=== PATIENT | female | born 1995 | race Caucasian/White ===

== ENCOUNTER 2023-10-09 18:23 | Day surgery (SDC) | payer OTHER, SELFPAY ==
[2023-10-09] VITALS (14 sets, daily range): BP systolic 109–131; BP diastolic 47–105; PULSE 77–104; RESP 16–24; TEMP 36.1–37; O2SAT 99–100; BMI 24.2
[2023-10-09 19:04] LABS: Basophils Percent Auto 0.4 % (0.0-3.0); Hematocrit 34.9 % (33.0-51.0); Hemoglobin* 11.9 gm/dL (12.0-16.0); Immature Granulocytes Pct Auto 0.1 %; Lymphocytes Percent Auto 19.4 % (20-44); Mean Corpuscular HGB Conc 34 gm/dL (32-36); Mean Corpuscular Hemoglobin 31 pg (26-34); Mean Corpuscular Volume 90 fL (80-100); Monocytes Percent Auto 6.1 % (0.0-11.0); Platelet Count* 298 K/uL (140-440); RDW Coefficient of Variation % 12.5 % (11.5-15.5); Red Blood Count 3.88 m/uL (4.00-5.20); White Blood Count* 13.68 K/uL (4.50-11.00)
[2023-10-09 19:05] LABS: Slide Review Reflex No
[2023-10-09] MEDS: MORPHINE 4 MG/ML INJ IVP (19:06)
[2023-10-09] MEDS: 0.9 % SODIUM CHLORIDE 1000 ml 1,000 ML IV (19:07)
--- NOTE | 2023-10-09 19:31 | P.GYNCN_ITS ---
SCHOOL ATTENDANCE SECRETARY - CN: HPI Data of Consult Time Seen by Provider: 19:00 Date Seen: 10/09/23 Patient: Mirela Patient Consult date: 10/09/23 Primary Care Provider: Sandi Capone MD Consult Narrative Reason for consult: ectopic Narrative: Tayler Perry is a 28 year old female who presents to the ED a ruptured ectopic . She was evaluated by Dr. Capone in clinic today for follow-up of left lower quadrant abdominal pain in the setting of of unknown location. LMP is 08/29/2023. This was a wanted . Tayler reported LLQ pain that started over a week ago. It has progressively worsened. She reports that she is in constant abdominal pain, 5/10. Pain is worse with walking and physical activities. Her pain was so severe that she went to [facility] Emergency Department on 10/07/2023. At that time, lab workup including CBC, CMP, UA/urine culture were unremarkable. Her hemoglobin was 13.5 at the time. Beta-hCG was 1846. Unfortunately, a pelvic ultrasound was not done at that time as patient was told she was too early in to see anything. The recommendation at that time was to follow up in clinic on Monday. Since then her pain has only gotten worse. On 10/08, she started having vaginal bleeding. Her vaginal bleeding is not heavy. She describes it as a slow drip. She no has worsening nausea. At her visit with Dr. Capone today she had repeat hgb, beta hcg, and a pelvic ultrasound today. Her pelvic ultrasound showed no intrauterine gestational sac. Uterus appears unremarkable. Endometrial stripe measures 14 mm, within normal limits. No suspicious uterine masses. The right ovary measures 2.9 x 2.8 x 2.8 cm. The left ovary measures 3.9 x 2.7 x 2.3 cm. Within the left ovary, there is increased focus of hypervascularity, without well-defined mass identified. There is a small to moderate volume of complex free fluid in the pelvis and the left adnexal region. Increase focus of hypervascularity in the left adnexal region without well defined ovarian mass could represent a ruptured ectopic in this patient. Her hgb today was 11.6 at the time of her clinic visit. Beta-hCG still pending at the time of this H&P. Given her drop in hemoglobin, continued abdominal pain, and ultrasonographic findings, I suspect ruptured ectopic . Overall, she is vitally stable (mild tachycardia to 102 bpm) but has an acute abdomen. At this point, I recommend proceeding with diagnostic laparoscopy and anticipated ectopic removal. We discussed that the ectopic removal could require salpingectomy and/or oophorectomy. Tayler is tearful as this was very much a desired but agrees with the plan as she can't tolerate the pain much longer. Surgical hx: Reimplantation of the ureter at the age of 9 cc:: CC: PFSH [facility] Social History Smoking Status: Current every day smoker What tobacco products do you use: cigarettes Smoking packs per day: 0.5 Smoking cigarettes per day: 10.0 Years smoked: 10 Smoking pack-years: 5.00 Do you use any of these nicotine containing products: None Second hand tobacco smoke exposure: No How often do you have a drink containing alcohol: 4 or more times a week AUDIT-C Alcohol total score: 4 Non-prescribed substance use: denies use Meds Home Medications and Allergies Home Medications Medication Instructions Recorded Confirmed Type No Known Home Medications 10/09/23 10/09/23 History Allergies Allergy/AdvReac Type Severity Reaction Status Date / Time amoxicillin Allergy Severe Anaphylaxis Verified 10/09/23 18:41 SCHOOL ATTENDANCE SECRETARY - Exam Physical Exam: Vital signs: Temp Pulse Resp BP Pulse Ox O2 Del Method 98.6 F 102 H 18 125/80 100 Room Air 10/09/23 18:35 10/09/23 18:35 10/09/23 18:35 10/09/23 18:35 10/09/23 18:35 10/09/23 18:35 Narrative: Physical exam: General: Tearful during our discussion but no acute distress Psych: Alert and oriented x4, full affect HEENT: Normocephalic, atraumatic, bilateral conjunctival pallor Neck: No cervical adenopathy, no thyromegaly Lungs: Unlabored breathing Abdomen: tenderness this from the umbilicus down- most pronounced at the left lower quadrant. Positive rebound and guarding. Skin: No lesions or rashes Lower extremities: No edema or erythema Pelvic exam: Deferred to OR SCHOOL ATTENDANCE SECRETARY - Results Labs Labs: Short CBC 10/09/23 Range/Units 18:52 WBC 13.68 H (4.50-11.00) K/uL Hgb 11.9 L (12.0-16.0) gm/dL Hct 34.9 (33.0-51.0) % Plt Count 298 (140-440) K/uL Assessment and Plan Assessment and plan (1) Ruptured ectopic : Status: Acute Plan - Tayler was consented for a diagnostic laparoscopy, ectopic removal with possible salpingectomy and/or oophorectomy, and all other indicated procedures. We also discussed risk of laparoscopic surgery including pain, bleeding, infection, and damages to the surrounding structures of the operative site. We also reviewed postoperative expectations and recovery course. Patient After counseling patient would like to proceed. Consents signed and OR team notified - Last ate at 1pm - Hgb/plt: 11.9/298 - Beta HCG pending from [facility] - Type and screen: A+; Rhogam not indicated.
--- NOTE | 2023-10-09 20:01 | ED_ITS ---
HPI - General Adult General Date Seen: 10/09/23 Chief complaint: OB/Uterine Contractions Stated complaint: abdominal pain Time Seen by Provider: 10/09/23 18:24 Source: patient, RN notes reviewed and other Mode of arrival: ambulatory Limitations: no limitations History of Present Illness HPI narrative: Patient is a 28-year-old , previous was uncomplicated. She had been having some abdominal pain and bleeding, apparently was seen in [place] last week and had a beta hCG of 1800 but ultrasound was not done at that time. She was seen in clinic today due to ongoing abdominal pain and was noted to have hemoglobin of 11.5 which was down 2 g and an ultrasound which showed a probable ruptured ectopic and hemoperitoneum. She was called and advised to come to the ER. She has no specific complaints at this time aside from abdominal pain, which is diffuse. She has not had vomiting. She denies prior need for RhoGAM. Denies other medical history, no known allergies. Here today with her partner. Related Data Home Medications Medication Instructions Recorded Confirmed No Known Home Medications 10/09/23 10/09/23 Allergies Allergy/AdvReac Type Severity Reaction Status Date / Time amoxicillin Allergy Severe Anaphylaxis Verified 10/09/23 18:41 Review of Systems Status of ROS: Reports: 6 or more systems reviewed and unremarkable except as noted in History and below PFSH PFS Social History Smoking Status: Current every day smoker What tobacco products do you use: cigarettes Smoking packs per day: 0.5 Smoking cigarettes per day: 10.0 Years smoked: 10 Smoking pack-years: 5.00 Do you use any of these nicotine containing products: None Second hand tobacco smoke exposure: No How often do you have a drink containing alcohol: 4 or more times a week AUDIT-C Alcohol total score: 4 Non-prescribed substance use: denies use Exam Const: Vital Signs, click to edit/add: Vital Signs - 24 hr 10/09/23 18:35 Temperature 98.6 F Pulse Rate [Pulse Oximeter] 102 H Respiratory Rate 18 Blood Pressure [Ri ght Upper Arm] 125/80 Pulse Oximetry 100 Oxygen Delivery Me thod Room Air Course Course ED Course: On arrival, an IV was placed, labs drawn for CBC as well as a type and screen. Dr. Carranza was alerted that patient had arrived to the ER. She was already aware of her case. I ordered a L normal saline. Hemodynamically, blood pressure was good, she was mildly tachycardic with a pulse of 102. Given morphine 4 mg for pain. CBC showed a stable hemoglobin of 11.9. OB consulted, patient was taken the operating room. Otherwise unremarkable ER course. Vital Signs Vital signs: Initial Vital Signs Temperature 98.6 F 10/09/23 18:35 Temperature Source Temporal Artery Scan 10/09/23 18:35 Pulse Rate 102 H 10/09/23 18:35 Respiratory Rate 18 10/09/23 18:35 Blood Pressure 125/80 10/09/23 18:35 Blood Pressure Mean 95 10/09/23 18:35 Blood Pressure Position Sitting 10/09/23 18:35 Pulse Oximetry 100 10/09/23 18:35 Oxygen Delivery Method Room Air 10/09/23 18:35 Vital Signs Temperature 98.6 F 10/09/23 18:35 Pulse Rate 102 H 10/09/23 18:35 Respiratory Rate 18 10/09/23 18:35 Blood Pressure 125/80 10/09/23 18:35 Pulse Oximetry 100 10/09/23 18:35 Oxygen Delivery Method Room Air 10/09/23 18:35 Temperature 98.6 F 10/09/23 18:35 Pulse Rate 102 H 10/09/23 18:35 Respiratory Rate 18 10/09/23 18:35 Blood Pressure 125/80 10/09/23 18:35 Pulse Oximetry 100 10/09/23 18:35 Oxygen Delivery Method Room Air 10/09/23 18:35 Medications Administered Medications: Generic Name Dose Route Start Last Admin Trade Name Freq PRN Reason Stop Dose Admin Sodium Chloride 1,000 mls @ 1,000 mls/hr 10/09/23 18:45 10/09/23 19:07 0.9 % Sodium Chloride 1000 Ml IV 10/09/23 19:44 1,000 mls/hr .Q1H KAYCEE Administration Morphine Sulfate 4 mg 10/09/23 18:52 10/09/23 19:06 Morphine 4 Mg/Ml Inj IVP 10/09/23 18:53 4 mg ONCE ONE Administration Medical Decision Making Lab Data Labs: Lab Results 10/09/23 Range/Units 18:52 WBC 13.68 H (4.50-11.00) K/uL RBC 3.88 L (4.00-5.20) m/uL Hgb 11.9 L (12.0-16.0) gm/dL Hct 34.9 (33.0-51.0) % MCV 90 (80-100) fL MCH 31 (26-34) pg MCHC 34 (32-36) gm/dL RDW Coeff of Saray 12.5 (11.5-15.5) % Plt Count 298 (140-440) K/uL Neut % (Auto) 73.0 H (42.0-72.0) % Lymph % (Auto) 19.4 L (20-44) % [place] % (Auto) 6.1 (0.0-11.0) % Eos % (Auto) 1.0 (0.0-7.0) % Baso % (Auto) 0.4 (0.0-3.0) % Neut # (Auto) 10.00 H (1.7-7.0) K/uL Lymph # (Auto) 2.70 (0.90-2.90) K/uL [place] # (Auto) 0.80 (0.00-0.90) K/UL Eos # (Auto) 0.10 (0.00-0.50) K/uL Baso # (Auto) 0.10 (0.00-0.30) K/uL Abs Immat Gran (auto) 0.00 (0.00-0.30) K/uL Imm/Tot Granulo (auto) 0.1 % Discharge Plan Discharge Clinical Impression: Ruptured ectopic Prescriptions: No Action No Known Home Medications Follow Up/Referrals: Sandi Capone MD [Primary Care Provider] -
--- NOTE | 2023-10-09 20:09 | PM.GYNPRLA ---
Procedure Pre-op/Post-op diagnoses: Pre-Op/Post-Op Diagnoses Operation Date: 10/09/23 20:00 <No data on this case meets the specified criteria> Procedure: Procedures Operation Date: 10/09/23 20:00 Diagnostic laparoscopy, left salpingectomy with ectopic removal Estimated blood loss (mL): 10 Anesthesia type: General Complications: none Specimen: other (Left fallopian tube with ectopic ) Narrative: Narrative: Preoperative diagnosis: Tayler is a 28-year-old who presented to the ED with a ruptured ectopic and consented for emergency surgery. Postoperative diagnosis: Same Procedure: Diagnostic laparoscopy, left salpingectomy Anesthesia: General endotracheal, local Surgeon: Ela Carranza MD Real Estate Internship: None Estimated blood loss: 10 mL UOP: 250 cc IVF: 1000 cc Specimen: Left fallopian tube with ectopic inside. Findings: 1. Upon pelvic exam under anesthesia, vagina with scant blood in vaginal vault. One nabothian cyst on cervix, but otherwise normal. Uterus was mobile and anteverted, of normal size and texture. There were left adnexal mass palpated on bimanual exam. Abdomen mildly distended. 2. Upon laparoscopy, survey of the upper abdomen revealed a normal appearance to the inferior edge of the liver. Adhesion of the bowel to the right pelvic side wall from previous ureter reimplantation. Appendix unable to be visualized. Filmy adhesion of sigmoid colon to left pelvic side wall. Right fallopian tube and ovary was normal in appearance. Normal left ovary. Left fallopian tube was edematous with active bleeding from obvious ruptured ectopic . The abdomen and cul-de-sac was noted to be filled with approximately 200- 300 cc of blood and clots. Tayler was taken to the operating room where general anesthesia was found to be adequate. She was placed in the dorsal lithotomy position and an exam under anesthesia was performed with findings stated above. She was then prepped and draped in a normal sterile manner. Her bladder was drained with Prasad catheter. A sponge stick was placed vaginally to act as uterine manipulator. Attention was turned to performing the laparoscopic portion of the procedure. All incisions were injected with 0.5% Marcaine with epinephrine prior to incising the skin. An infraumbilical, vertical, 5 mm incision was made. A 5 mm trocar was placed under direct visualization. An intra-abdominal placement verified with laparoscopy. The abdomen was then insufflated with carbon dioxide to a pressure of 15 mm of mercury. Two additional port sites were created. The 1st was in the patient's left lower quadrant, just superior medial to the left ASIS. The 2nd was a hand's breath superior to and slightly medial to the 1st. Each was infiltrated with small amount of Marcaine prior to incision. An 11 mm incision was at the left lower quadrant port site, making sure the large vessels were out of harm's way. An 11 mm Fios Kii port was inserted at this port site. A 5 mm Fios Kii port was inserted at the remaining port sites, under direct visualization and without complication. The balloon on each of the 3 ports was inflated, holding each in place. A diagnostic laparoscopy was then performed with findings stated above. Left fallopian tube was obviously abnormal and actively bleeding. Left salpingectomy was performed with the LigaSure. Excellent hemostasis was noted at the pedicles. An EndoCatch bag was placed through the 11 mm port and the left fallopian tube was placed into the EndoCatch bag. The EndoCatch bag was removal through the 11 port. Once the Endocatch bag was removed, the 11 port was closed under direct visualization with 0 vicryl. Suction irrigation was performed to evacuate the pelvis of old clots. Excellent hemostasis was noted at the pedicle under low flow. The trocars removed under direct visualization. The CO2 gas was allowed to escape the infraumbilical port prior to its removal. The incisions were repaired using 3-0 Vicryl in a running, subcuticular manner, Exofin was applied at all incision sites. The vaginal sponge stick and prasad catheter were removed. No bleeding noted. Sponge, lap and instrument counts were correct at the end of the procedure. Patient tolerated the procedure well. She was awakened from anesthesia and taken to the recovery area in stable condition.
--- NOTE | 2023-10-09 20:11 | ED.NURSE ---
Pt transferred to same day surgery. Pt in stable condition upon transfer. All belongings with pt's family/ significant other.
[2023-10-09] MEDS: BUPIVACAINE 0.25% 30 ML INJECTION (20:42)
[2023-10-09] MEDS: LACTATED RINGERS 1000 ML 1,000 ML 100 ML IV (21:03)
[2023-10-09] MEDS: KETOROLAC 30 MG/ML inj IVP (21:20)
--- NOTE | 2023-10-09 21:47 | W.ANESCHARGE ---
Anesthesia Charges Start Date/Time Anesthesia Start Date: 10/09/23 Anesthesia Start Time: 19:59 Stop Date/Time Anesthesia Stop Date: 10/09/23 Anesthesia Stop Time: 21:43 Summary Emergency: SWEEPER DRIVER
[2023-10-09] MEDS: MIDAZOLAM HCL 1 MG/ML inj 2 MG IVP (21:52)
[2023-10-09] MEDS: HYDROmorphone 0.5 mg/0.5 ml inj IVP (22:00)
[2023-10-09] MEDS: MEPERIDINE 25 MG/ML INJ 12.5 MG IVP (22:18)
[2023-10-09] MEDS: ACETAMINOPHEN 500 MG TABLET 1000 MG PO (23:10)
[2023-10-09] MEDS: OXYCODONE 5 MG TABLET PO (23:11)
[2023-10-09 23:54] LABS: Basophils Percent Auto 0.2 % (0.0-3.0); Eosinophils Percent Auto 0.1 % (0.0-7.0); Hematocrit 32.8 % (33.0-51.0); Hemoglobin* 11.3 gm/dL (12.0-16.0); Immature Granulocytes Pct Auto 0.2 %; Lymphocytes Percent Auto 5.2 % (20-44); Mean Corpuscular HGB Conc 35 gm/dL (32-36); Mean Corpuscular Hemoglobin 31 pg (26-34); Mean Corpuscular Volume 89 fL (80-100); Monocytes Percent Auto 1.4 % (0.0-11.0); Neutrophils Percent Auto 92.9 % (42.0-72.0); Platelet Count* 252 K/uL (140-440); RDW Coefficient of Variation % 12.5 % (11.5-15.5); Red Blood Count 3.67 m/uL (4.00-5.20); Slide Review Reflex No; White Blood Count* 15.26 K/uL (4.50-11.00)
[2023-10-10] VITALS: BP 103/58; PULSE 84; RESP 18; TEMP 36.9; O2SAT 100
[2023-10-10 00:30] VITALS: BP 106/66; PULSE 90; RESP 18; TEMP 36.9; O2SAT 100
[2023-10-10] MEDS: IBUPROFEN 600 MG TABLET PO (00:44)
--- NOTE | 2023-10-10 02:05 | PC.NURSE ---
Pt arrived to med/surg unit from same day surgery at 2226 last evening following surgery to treat ectopic . 3 laparoscopic surgical incisions to left side of abdomen noted to be covered with steri strips and KIA with no s/s of infection observed upon inspection. Pt was able to void before discharge and was tolerating ice chips, po fluids and food with no c/o nausea. Abdominal pain was controlled with PRN pain medications given. Discharge paperwork reviewed with pt and signed by pt prior to discharge. IV to L AC removed prior to discharge. inspecting supervisor instructed and demonstrated pt how to remove Oxycodone transmitted to [employer] med machine located near ED entrance. Pt did verify she has supply of Acetaminophen and Ibuprofen at home. Pt afebrile and VSS before discharge. Pt discharged with family present and private vehicle driven by family. She was able to transfer with [facility].
== END 2023-10-10 01:30 | disposition home or self-care (01) ==
LOC: ED 19:19 → SS 20:08 → MEDSURG 22:51
PROVIDERS: Emergency Provider Emergency Medicine; PCP Family Medicine; Visit Provider Obstetrics & Gynecology
PROC: (CPT 59150; principal; 2023-10-09 19:45)
DX: O00.102 Left tubal pregnancy without intrauterine pregnancy (principal)
CPT/HCPCS: 59151; 00840; 36415; 85025; 86850; 86900; 86901; 88305; 99140; 99284; 99285; A9270; J0330; J0665; J1100; J1170; J1885; J2175; J2250; J2270; J2371; J2405; J2704; J2710; J3010; J3475; J7030; J7120

== ENCOUNTER 2025-07-07 12:44 | Outpatient (CLI) | payer SELFPAY ==
[2025-07-07 13:03] VITALS: PULSE 76; O2SAT 98
[2025-07-07 13:04] VITALS: BP 124/66; PULSE 74
[2025-07-07 13:05] VITALS: TEMP 36.7
[2025-07-07 13:23] LABS: Amnisure Rom* Negative
--- NOTE | 2025-07-07 14:33 | PC.OBNST ---
NST Note NST Note Start: 07/07/25 12:49 Freq: ONCE Status: Active Protocol: Document 07/07/25 14:31 [facility] (Rec: 07/07/25 14:33 [facility] No Response) NST Note 3 Para (# of births) 1 EDC 07/13/25 Gestational Age In 39 Weeks & 1 Days Weeks & Days Patient Presented Leaking fluid with Complaint(s) of Reactive Yes Appropriate for Yes Gestational Age MURTAZA Richardson RNC Date 07/07/25 Reactive Yes Appropriate for Yes Gestational Age MURTAZA Hernandez RNC Date 07/07/25 OB NST charge Yes Complete NST Note Yes via Write Note The provider's electronic signature indicates the NST is reactive/appropriate for gestational age. *Note to provider: If an addendum is required, open the patient's chart and click on the note under the Nurse/Allied Health tab.
== END 2025-07-07 13:50 | disposition home or self-care (01) ==
LOC: OB OUT 12:45 → OB 12:49
PROVIDERS: PCP Family Medicine; Visit Provider Family Medicine
DX: O47.1 False labor at or after 37 completed weeks of gestation (principal); Z3A.39 39 weeks gestation of pregnancy
CPT/HCPCS: 59025; 84112; G0463

== ENCOUNTER 2025-07-10 20:24 | Inpatient (IN) | payer OTHER, SELFPAY ==
[2025-07-10] VITALS (15 sets, daily range): BP systolic 104–131; BP diastolic 58–86; PULSE 75–102; RESP 16; TEMP 36.6–37; O2SAT 99–100; BMI 27.9
[2025-07-10 19:35] LABS: Amnisure Rom* Negative
[2025-07-10] MEDS: LACTATED RINGERS 1000 ML 1,000 ML 1200 ML IV (20:45)
[2025-07-10 20:59] LABS: Hematocrit* 36.5 % (33.0-51.0); Hemoglobin* 12.3 gm/dL (12.0-16.0); Immature Granulocytes Pct Auto 0.3 %; Mean Corpuscular HGB Conc 34 gm/dL (32-36); Mean Corpuscular Hemoglobin 31 pg (26-34); Mean Corpuscular Volume 91 fL (80-100); RDW Coefficient of Variation % 13.6 % (11.5-15.5); Red Blood Count* 4.02 m/uL (4.00-5.20); White Blood Count* 17.97 K/uL (4.50-11.00)
[2025-07-10 21:01] LABS: Immature Granulocytes Abs Auto 0.10 K/uL (0.00-0.30); Lymphocytes Absolute Auto 2.60 K/uL (0.90-2.90); Slide Review Reflex No
[2025-07-10] MEDS: OXYTOCIN 30 unit/500 ML in NS 30 UNIT/500 ML BAG 300 UNIT IVPB (21:31)
[2025-07-10] MEDS: LIDOCAINE 1 % PF 30 ML INJECTION (21:39)
[2025-07-10] MEDS: ACETAMINOPHEN 500 MG TABLET 1000 MG PO (22:22)
--- NOTE | 2025-07-10 22:27 | PM.OBHPLI ---
OB - H&P: HPI Labor/Induction History of Present Illness Time Seen by Provider: 21:15 Date Seen: 07/10/25 Chief Complaint: The patient is a 30 year old 3 para 1 at 39+4 weeks gestation by 6 wk US, who presents with active labor. Chief complaint: maternity : 3 Para: 1 Narrative: Tayler Perry is a 30 year old female at 39+4 weeks by 6 week ultrasound who presents in active labor. complicated by tobacco dependence, history of ectopic , history of vacuum assisted vaginal delivery. GBS negative. She was seen in the clinic today where cervix was 4/70/-2 and had membrane sweep. Noted onset of contractions at 5:00 p.m. these became more intense around 1830. Her initial cervical check was unchanged from the clinic, but she progressed to 5.5 cm over the course of an hour. Requested epidural, but she progressed rapidly, was not able to receive this. She delivered a vigorous baby girl at 2124 via . A second-degree vaginal and left labial laceration were repaired hemostatic. QBL 400. Mom and baby are resting comfortably. History of Present Dating criteria: based on 1st trimester US only care: good care Ultrasounds: normal 1st trimester US Abnormal ultrasound findings: Choroid plexus cyst on 20 week survey resolved on level 2 ultrasound at 24 weeks. Labs Blood type: A (+) positive Rubella: immune RPR/VDLR: nonreactive GBS status: negative HBsAG: negative Narrative: Hepatitis C negative HIV negative GC/chlam negative GCT 89 Review of Systems Status of ROS: Reports: 10 or more systems reviewed and unremarkable except as noted in History and below Meds Home Medications and Allergies Home Medications ?Medication ?Instructions ?Recorded ?Confirmed ?Type multivitamin 1 tab PO QAM 10/27/23 07/10/25 History Allergies Allergy/AdvReac Type Severity Reaction Status Date / Time amoxicillin Allergy Severe Anaphylaxis Verified 07/10/25 19:35 OB - H&P: Exam Physical Exam: Vital signs: Temp Pulse Resp BP Pulse Ox 98.2 F 85 16 126/71 99 07/10/25 21:50 07/10/25 22:19 07/10/25 22:03 07/10/25 22:19 07/10/25 21:10 OB - Results Labs Labs: Short CBC 11/20/25 Range/Units 20:50 WBC 17.97 H (4.50-11.00) K/uL Hgb 12.3 (12.0-16.0) gm/dL Hct 36.5 (33.0-51.0) % Plt Count 262 (140-440) K/uL OB - Problem Based A/P Additional Plan (1) with 39 completed weeks gestation: Status: Acute (2) (normal spontaneous vaginal delivery): Problem details: Spontaneous labor at 39+4 weeks. Second degree vaginal and L labial tear. QBL 400. Status: Acute (3) Tobacco dependence: Status: Acute Plan - Normal post- cares - Declines nicotine patch - Anticipate discharge after 1-2 midnights
--- NOTE | 2025-07-10 22:52 | W.PM.VAGDE_ITS ---
OB Procedure Vag Delivery Mother Details Mother Details: The patient is a 30 year-old, 3, Para 1, admitted on 07/10/25 at 39+4 Days gestation. She presented in active labor. Initial cervical check was 4/70/-2. She made cervical change and was admitted. She requested an epidural, but progressed quickly. S Remicade for clear fluid at 8:40 p.m. She was noted to be involuntarily pushing at 9:04 p.m. she was found to be complete at 9:08 p.m. the heart turns were category 2 in the 2nd stage with variable decelerations during contractions and rapid return to baseline between. She delivered a vigorous female infant over intact perineum at 9:25 p.m. infant was placed on the maternal chest. Cord was cut and clamped after a 60 second delay. There was active management of the 3rd stage with IV Pitocin. The placenta delivered spontaneously at 9:31 p.m. It was found to be complete with a three-v essel cord. A second-degree vaginal and left labial laceration was repaired with 3-0 Vicryl in the usual fashion with good hemostasis. QBL was 400. Monitor BP and resting comfortably. : 3 Para: 1 Weeks Gestation: 39.4 Admission Date: 07/10/25 Additional Details Amniotic Membrane Status: SROM Amniotic Membrane Rupture Date: 07/10/25 Amniotic Membrane Rupture Time: 20:40 Amniotic Membrane Fluid Description: Clear Analgesia/Anesthesia Type: None Waterbirth: No Pitcoin: No Labor Onset: 20:20 Complete: 21:08 Pushin:04 Heart: heart tones during second stage were category II. Decelerations with pushing, but rapid return to baseline between contractions. Delivery Details Delivery Date: 07/10/25 Delivery Time: 21:25 Route of delivery: Infant Gender: Female Infant Viability: Alive; Heart Rate Present Position at Delivery: OA Delivery Details: Delivered via spontaneous vaginal delivery. Infant was placed on maternal abdomen.? Cord was clamped and cut after a 30-60 second delay. Nose and mouth were bulb suctioned.? Infant weight pending. 1 Minute Interval Total Score: 9 5 Minute Interval Total Score: 9 Additional Details Shoulder Dystocia: No Placenta Delivery Time: 21:31 Placental Delivery Description: Spontaneous Delivery repair: Vicryl Procedure Done: Global Blood Loss: 400 Laceration: Vaginal - 2nd Degree (and left labial) Blood Loss Measurement Type: QBL Sponge/Need Count Correct: Yes Cord Vessel Description: 3 Vessels Event Summary Status: Mother and infant were stable after delivery. Disposition: floor
[2025-07-10] MEDS: IBUPROFEN 600 MG TABLET PO (23:58)
[2025-07-11 03:18] VITALS: BP 114/67; PULSE 78; RESP 16; TEMP 36.8; O2SAT 97
[2025-07-11] MEDS: ACETAMINOPHEN 500 MG TABLET 1000 MG PO (05:45)
[2025-07-11 05:55] LABS: Hemoglobin* 11.1 gm/dL (12.0-16.0)
[2025-07-11] MEDS: IBUPROFEN 600 MG TABLET PO (07:41)
[2025-07-11] MEDS: DOCUSATE SODIUM 100 MG CAPSULE PO (07:42)
[2025-07-11 07:44] VITALS: BP 109/68; PULSE 70; RESP 16; TEMP 36.6; O2SAT 98
--- NOTE | 2025-07-11 07:49 | P.OBPN_ITS ---
OB - PN:Subj Subjective Time Seen by Provider: 07:49 Date Seen: 07/11/25 Patient comments OB post-: no complaints and pain well controlled [place] infant status: Narrative: Patient feels well. Her only complaint is she would like breakfast as she has not eaten since she arrived. OB - PN: Obj Exam Physical Exam: Vital signs: Temp Pulse Resp BP Pulse Ox O2 Del Method 97.8 F 70 16 109/68 98 Room Air 07/11/25 07:44 07/11/25 07:44 07/11/25 07:44 07/11/25 07:44 07/11/25 07:44 07/11/25 07:44 Constitutional: Constitutional: no acute distress Routine HEENT Exam: Head: Present atraumatic and normal inspection Routine Neck Exam: Neck: Present full ROM Routine Respiratory Exam: Respiratory: Present CTA bilaterally Routine Cardiovascular Exam: Cardiovascular: Present RRR, S1 and S2; Absent murmur Routine Neurological Exam: Neurological: Present alert and oriented X3 Urinary Catheter Management: Urethral: Cath placed during this visit: no OB - PN: Obj Data Labs Labs: Laboratory Results - last 24 hr 07/10/25 07/10/25 07/11/25 19:24 20:50 05:42 WBC 17.97 H RBC 4.02 Hgb 12.3 11.1 L Hct 36.5 MCV 91 MCH 31 MCHC 34 RDW Coeff of Saray 13.6 Plt Count 262 Neut % (Auto) 79.0 H Lymph % (Auto) 14.5 L [place] % (Auto) 5.5 Eos % (Auto) 0.5 Baso % (Auto) 0.2 Neut # (Auto) 14.20 H Lymph # (Auto) 2.60 [place] # (Auto) 1.00 H Eos # (Auto) 0.10 Baso # (Auto) 0.00 Abs Immat Gran (auto) 0.10 Imm/Tot Granulo (auto) 0.3 Membrane Rupture Negative Blood Type A Positive Antibody Screen NEGATIVE OB - PN: A/P Delivery Assessment and Plan (1) with 39 completed weeks gestation: Status: Acute (2) (normal spontaneous vaginal delivery): Problem details: Spontaneous labor at 39+4 weeks. Second degree vaginal and L labial tear. QBL 400. Status: Acute (3) Tobacco dependence: Status: Acute Plan Doing well. Working on breast feeding. Plan day: 1 Plan: routine care Comments: likely to discharge to home tomorrow.
[2025-07-11 12:30] VITALS: BP 110/74; PULSE 72; RESP 16; TEMP 36.6; O2SAT 98
[2025-07-11 16:55] VITALS: BP 119/75; PULSE 68; RESP 16; TEMP 36.8; O2SAT 98
--- NOTE | 2025-07-11 20:51 | PM.OBDSVD1 ---
DS: Providers Provider Time Seen by Provider: 21:59 Date Seen: 07/11/25 Date of admission: 07/10/25 20:24 Primary care physician: Sandi Capone MD Admitting Clinician: Sandi Capone MD Attending Physician on discharge: Alejandrina Brito MD Date of Discharge: 07/11/25 DS: Diagnosis Discharge Diagnosis (1) (normal spontaneous vaginal delivery): Status: Acute Problem details: Spontaneous labor at 39+4 weeks. Second degree vaginal and L labial tear. QBL 400. (2) with 39 completed weeks gestation: Status: Acute (3) Tobacco dependence: Status: Acute Exam Const: Vital Signs, click to edit/add: Vital Signs - 24 hr 07/10/25 21:10 07/10/25 21:34 07/10/25 21:34 Temperature Pulse Rate 82 Pulse Rate [Pulse Oximeter] Respiratory Rate 16 Blood Pressure 127/86 Blood Pressure [Le ft Arm] Pulse Oximetry 99 Oxygen Delivery Me thod 07/10/25 21:50 07/10/25 21:50 07/10/25 22:03 Temperature 98.2 F Pulse Rate 95 93 Pulse Rate [Pulse Oximeter] Respiratory Rate 16 Blood Pressure 131/60 129/80 Blood Pressure [Le ft Arm] Pulse Oximetry Oxygen Delivery Me thod 07/10/25 22:03 07/10/25 22:19 07/10/25 22:19 Temperature 98.6 F Pulse Rate 85 Pulse Rate [Pulse Oximeter] Respiratory Rate 16 16 Blood Pressure 126/71 Blood Pressure [Le ft Arm] Pulse Oximetry Oxygen Delivery Me thod 07/10/25 22:33 07/10/25 22:33 07/10/25 22:48 Temperature Pulse Rate 82 84 Pulse Rate [Pulse Oximeter] Respiratory Rate 16 Blood Pressure 120/69 114/63 Blood Pressure [Le ft Arm] Pulse Oximetry Oxygen Delivery Me thod 07/10/25 22:48 07/10/25 23:03 07/10/25 23:03 Temperature 98.3 F Pulse Rate 76 Pulse Rate [Pulse Oximeter] Respiratory Rate 16 16 Blood Pressure 113/64 Blood Pressure [Le ft Arm] Pulse Oximetry Oxygen Delivery Me thod 07/10/25 23:18 07/10/25 23:18 07/10/25 23:33 Temperature Pulse Rate 81 75 Pulse Rate [Pulse Oximeter] Respiratory Rate 16 Blood Pressure 122/74 124/72 Blood Pressure [Le ft Arm] Pulse Oximetry Oxygen Delivery Me thod 07/10/25 23:33 07/11/25 03:18 07/11/25 07:44 Temperature 98.3 F 97.8 F Pulse Rate Pulse Rate [Pulse Oximeter] 78 70 Respiratory Rate 16 16 16 Blood Pressure Blood Pressure [Le ft Arm] 114/67 109/68 Pulse Oximetry 97 98 Oxygen Delivery Me thod Room Air Room Air 07/11/25 12:30 07/11/25 16:55 Temperature 97.9 F 98.2 F Pulse Rate Pulse Rate [Pulse Oximeter] 72 68 Respiratory Rate 16 16 Blood Pressure Blood Pressure [Le ft Arm] 110/74 119/75 Pulse Oximetry 98 98 Oxygen Delivery Me thod Room Air Room Air Documenting provider has reviewed patient's vital signs: yes Common normals: no apparent distress General appearance: cooperative and comfortable HENMT: Common normals: normocephalic Head and scalp: normocephalic Neck & C-Spine: Common normals: full ROM Resp: Common normals: normal respiratory effort and clear to auscultation bilaterally Auscultation: clear to auscultation bilaterally Cardio: Common normals: regular rate, regular rhythm, S1 normal heart sound and S2 normal heart sound Rate: regular rate Rhythm: regular rhythm Heart sounds: S1 normal and S2 normal Extremity: Common normals: normal to inspection OB - DS: Summary Hospital Course Hospital Course: The patient is a 30 year old G 3 P 2 at 39.4 weeks gestation that was admitted to the Center on 07/10/25 for active labor. She had an uncomplicated vaginal delivery. She delivered a viable female . She is breast feeding. the patient has done well. Patient requests 24 hour discharge despite being late at night as she would like to go home. Patient considered leaving AMA, but ultimately agreed to stay for 24 hour testing and then be immediately discharged. Peripartum Data Infant delivery method: Vaginal Laceration description: Periurethral - 2nd Degree complications: none Gender: Female Infant Discharge Plan: Home Status at Discharge Functional status at discharge: independent ambulation Overall status at discharge: patient is back to baseline Time Spent with Patient Time attestation: Total time spent providing and/or coordinating discharge services: Time spent: Greater than 30 minutes Discharge Plan Discharge Disposition: Home, Self-Care Date of Admission: 07/10/25 20:24 Attending Provider on Discharge: Alejandrina Brito Primary Care Provider: Sandi Capone I Condition: Improved Anticipated Discharge Date/Time: 07/11/25 22:00 Discharge Medications: Continued multivitamin Tablet 1 tab PO QAM Discharge Orders: Discharge Order (Routine); Ordered 07/11/25 Ordered By: Alejandrina Brito Patient Education: OB Vaginal/Breast Feeding Activity Level: Activity as Tolerated Activity Detail: pelvic rest x 6 weeks Discharge Diet: Regular Follow Up Appointments: Sandi Capone MD [Primary Care Provider, Obstetrics] Forms: MyHealth Info Instructions Discharge Comments: Please schedule follow up at [address] Capone
== END 2025-07-11 22:40 | disposition home or self-care (01) | DRG 807 ==
LOC: OB OUT 20:24 → OB 20:24
PROVIDERS: Admitting Provider Family Medicine; PCP Family Medicine; Visit Provider Family Medicine
DX: O99.334 Smoking (tobacco) complicating childbirth (principal); F17.210 Nicotine dependence, cigarettes, uncomplicated; O70.1 Second degree perineal laceration during delivery; Z37.0 Single live birth; Z3A.39 39 weeks gestation of pregnancy
CPT/HCPCS: 36415; 84112; 85018; 85025; 86592; 86850; 86900; 86901; A9270; J2003; J7120